=== PATIENT | male | born 1960 | race Caucasian/White ===

== ENCOUNTER → 2019-04-02 | Outpatient (CLI) | payer OTHER | END | disposition home or self-care (01) | LOC: RAH 10:30 | PROVIDERS: ATTEND Family Medicine | DX: Z13.6 Encounter for screening for cardiovascular disorders (principal) | CPT/HCPCS: 75571 ==

== ENCOUNTER → 2021-10-06 | Outpatient (CLI) | payer OTHER | END | disposition home or self-care (01) | LOC: OIH 09:40 | PROVIDERS: ATTEND Internal Medicine Cardiovascular Disease | DX: Z13.6 Encounter for screening for cardiovascular disorders (principal); I25.10 Atherosclerotic heart disease of native coronary artery without angina pectoris; I51.5 Myocardial degeneration | CPT/HCPCS: 75571 ==

== ENCOUNTER → 2022-04-19 | Outpatient (CLI) | payer OTHER | END | disposition home or self-care (01) | LOC: RAH 14:06 | PROVIDERS: ATTEND Internal Medicine Critical Care Medicine | DX: J43.2 Centrilobular emphysema (principal); J43.9 Emphysema, unspecified | CPT/HCPCS: 71250 ==

== ENCOUNTER → 2022-05-19 | Outpatient (CLI) | payer OTHER ==
[~2022-05-19] MED LIST: REGADENOSON 0.4 MG/5 ML PF SYG IVP SCH
== END | disposition home or self-care (01) ==
LOC: SHCH 08:30
PROVIDERS: ATTEND Internal Medicine Cardiovascular Disease
DX: R93.1 Abnormal findings on diagnostic imaging of heart and coronary circulation (principal); R07.9 Chest pain, unspecified; I10 Essential (primary) hypertension; E78.5 Hyperlipidemia, unspecified
CPT/HCPCS: 78452; 96374; 93017; J2785; A9500 ×2

== ENCOUNTER → 2022-06-28 | Outpatient (CLI) | payer OTHER ==
[2022-06-28 13:16] LABS: CHOLESTEROL 136 mg/dL (<200); HDL CHOLESTEROL 67 mg/dL (29-71); LDL DIRECT 61 mg/dL (0-99); TRIGLYCERIDES 28 mg/dL (30-200)
== END | disposition home or self-care (01) ==
LOC: LAB 07:52
PROVIDERS: ATTEND Internal Medicine Cardiovascular Disease
DX: I10 Essential (primary) hypertension (principal); E78.5 Hyperlipidemia, unspecified
CPT/HCPCS: 36415; 80061

== ENCOUNTER → 2023-03-23 | Outpatient (CLI) | payer OTHER | END | disposition home or self-care (01) | LOC: RAH 07:56 | PROVIDERS: ATTEND Internal Medicine Critical Care Medicine | DX: J44.9 Chronic obstructive pulmonary disease, unspecified (principal); J45.998 Other asthma | CPT/HCPCS: 71250 ==